=== PATIENT | female | born 1960 | race Caucasian/White ===

== ENCOUNTER → 2017-10-28 09:22 | Outpatient (CLI) | payer BC, SELFPAY ==
--- NOTE | 2017-10-28 09:32 | XR_ITS ---
XR chest 2V HISTORY: ITS.REASON: + PPD ORDERING PHYSICIAN: Flora Mac PATIENT AGE: 57 years COMPARISON: Floor 416 FINDINGS: The cardiomediastinal silhouette and pulmonary vascularity are within normal limits. The lungs are clear without infiltrates, suspicious nodules, or pleural effusions. No evidence of active granulomatous process Minimal thoracic curvature convex right. IMPRESSION: No change with no acute finding
== END ==
PROVIDERS: PCP Internal Medicine Adolescent Medicine; Visit Provider Nurse Practitioner Family
DX: R76.11 Nonspecific reaction to tuberculin skin test without active tuberculosis (principal)
CPT/HCPCS: 71046

== ENCOUNTER → 2021-05-13 08:07 | Outpatient (CLI) | payer BC, SELFPAY ==
[2021-05-13 08:47] LABS: Basophils # 0.1 K/mm3 (0-0.2); Eosinophils # 0.1 K/mm3 (0.0-0.4); Eosinophils % 2.3 % (0.1-12.0); Hematocrit 37.2 % (37.0-47.0); Hemoglobin 11.2 g/dL (12.2-16.2); Lymphocytes # 1.6 K/mm3 (0.7-4.5); Lymphocytes % 29.1 % (10-50); Mean Corpuscular HGB Conc 30.2 g/dL (31.8-35.4); Mean Corpuscular Hemoglobin 26.1 pg (27.0-31.2); Mean Corpuscular Volume 86.5 fl (81-99); Mean Platelet Volume 9.6 fl (7.4-10.4); Monocytes # 0.4 K/mm3 (0.1-1.0); Monocytes % 7.1 % (1.7-9.3); Neutrophils # 3.3 K/mm3 (1.8-7.8); Neutrophils % 60.4 % (37.0-80.0); Platelet Count 305 K/mm3 (142-424); White Blood Count 5.5 K/mm3 (4.8-10.8)
[2021-05-13 16:45] LABS: 25-OH Vitamin D, Total 33.9 ng/mL (30-100)
[2021-05-13 17:20] LABS: Alanine Aminotransferase 21 U/L (12-78); Albumin Level 3.6 g/dl (3.5-5.0); Albumin/Globulin Ratio 1.3 (1.1-1.8); Alkaline Phosphatase 80 U/L (38-126); Aspartate Amino Transferase 33 U/L (14-36); Bilirubin,Total 0.3 mg/dl (0.2-1.3); Blood Urea Nitrogen 23 mg/dl (7-17); Calcium 8.7 mg/dl (8.4-10.2); Carbon Dioxide 32 mmol/L (22.0-30.0); Chloride 101 mmol/L (98-107); Estimated Glomerular Filt Rate 57 ml/min (>60); GFR (African American) 69 ML/MIN (>60); Globulin 2.8 g/dL (1.3-3.2); Glucose 91 mg/dl (74-100); Sodium 141 mmol/L (136-145); Total Protein,Serum 6.4 g/dl (6.3-8.2)
[2021-05-13 18:08] LABS: Vitamin B12 435 pg/mL (239-931)
== END ==
PROVIDERS: Visit Provider Nurse Practitioner Family
DX: E53.8 Deficiency of other specified B group vitamins (principal); E55.9 Vitamin D deficiency, unspecified
CPT/HCPCS: 36415; 80053; 82306; 82607; 85025

== ENCOUNTER → 2021-06-17 09:28 | Outpatient (CLI) | payer BC, SELFPAY | PROVIDERS: PCP Internal Medicine Adolescent Medicine; Visit Provider Nurse Practitioner Family | DX: R06.02 Shortness of breath (principal) | CPT/HCPCS: 93306 ==

== ENCOUNTER → 2021-08-25 13:21 | Outpatient (CLI) | payer BC, SELFPAY | PROVIDERS: Visit Provider Nurse Practitioner | DX: Z20.822 Contact with and (suspected) exposure to COVID-19 (principal) | CPT/HCPCS: C9803; U0003; U0005 ==

== ENCOUNTER → 2021-09-06 10:23 | Outpatient (CLI) | payer BC, SELFPAY ==
--- NOTE | 2021-09-06 10:45 | XR_ITS ---
PROCEDURE INFORMATION: Exam: XR Right Knee Exam date and time: 09/06/2021 10:45 AM Age: 61 years old Clinical indication: Right; Patient HX: Pain RT knee x's 2 weeks - no injury TECHNIQUE: Imaging protocol: XR Right knee. Views: 3 views. COMPARISON: No relevant prior studies available. FINDINGS: Bones/joints: Moderate degenerative changes within the medial compartment and to a lesser degree the lateral compartment. Joint space narrowing with osteophytosis. Moderate to severe patellofemoral degenerative changes. Small joint effusion. Soft tissues: Normal. IMPRESSION: 1. Moderate degenerative changes within the medial compartment and to a lesser degree the lateral compartment. Joint space narrowing with osteophytosis. 2. Moderate to severe patellofemoral degenerative changes. 3. Small joint effusion.
[2021-09-06 11:22] LABS: Alanine Aminotransferase 24 U/L (12-78); Albumin Level 3.8 g/dl (3.5-5.0); Albumin/Globulin Ratio 1.5 (1.1-1.8); Alkaline Phosphatase 75 U/L (38-126); Anion Gap 6.8 mEq/L (5-15); Aspartate Amino Transferase 36 U/L (14-36); Bilirubin,Total 0.4 mg/dl (0.2-1.3); Blood Urea Nitrogen 19 mg/dl (7-17); Calcium 8.9 mg/dl (8.4-10.2); Carbon Dioxide 37 mmol/L (22.0-30.0); Chloride 99 mmol/L (98-107); Chol/HDL Ratio 3.1 (1-3.5); Cholesterol 190 mg/dl (140-200); Estimated Glomerular Filt Rate 57 ml/min (>60); GFR (African American) 69 ML/MIN (>60); Globulin 2.6 g/dL (1.3-3.2); Glucose 87 mg/dl (74-100); HDL Cholesterol 62 mg/dl (40-60); Potassium 3.8 mmoL/L (3.5-5.1); Sodium 139 mmol/L (136-145); Total Protein,Serum 6.4 g/dl (6.3-8.2); Triglycerides 62 mg/dl (30-150); Uric Acid 7.2 mg/dl (2.5-6.2); VLDL Cholesterol 12 mg/dL (0-40)
[2021-09-06 11:33] LABS: Direct LDL Cholesterol 106.28 mg/dL (100-129)
[2021-09-06 11:49] LABS: Basophils # 0.1 K/mm3 (0-0.2); Basophils % 2.3 % (0.1-2.0); Eosinophils # 0.2 K/mm3 (0.0-0.4); Eosinophils % 3.4 % (0.1-12.0); Hematocrit 42.8 % (37.0-47.0); Hemoglobin 13.3 g/dL (12.2-16.2); Lymphocytes # 1.4 K/mm3 (0.7-4.5); Lymphocytes % 23.4 % (10-50); Mean Corpuscular Hemoglobin 29.1 pg (27.0-31.2); Mean Corpuscular Volume 93.8 fl (81-99); Mean Platelet Volume 8.5 fl (7.4-10.4); Monocytes # 0.4 K/mm3 (0.1-1.0); Monocytes % 6.9 % (1.7-9.3); Neutrophils # 3.7 K/mm3 (1.8-7.8); Platelet Count 269 K/mm3 (142-424); Red Blood Count 4.56 M/mm3 (4.20-5.40); Red Cell Distribution Width 16.7 % (11.5-17.5); White Blood Count 5.8 K/mm3 (4.8-10.8)
[2021-09-06 12:03] LABS: Erythrocyte Sedimentation Rate 39 mm/hr (0-30)
[2021-09-06 12:11] LABS: Vitamin B12 348 pg/mL (239-931)
== END ==
PROVIDERS: PCP Nurse Practitioner Family; Visit Provider Nurse Practitioner Family
DX: Z00.00 Encounter for general adult medical examination without abnormal findings (principal); E53.8 Deficiency of other specified B group vitamins; E55.9 Vitamin D deficiency, unspecified; M25.561 Pain in right knee
CPT/HCPCS: 36415; 73562; 80053; 80061; 82306; 82607; 84550; 85025; 85651

== ENCOUNTER 2021-09-20 16:11 | Emergency (ER) | payer BC, SELFPAY ==
[2021-09-20 16:12] VITALS: BP 128/89; PULSE 55; RESP 14; TEMP 36.8; O2SAT 99; BMI 34.3
[2021-09-20 16:36] VITALS: BP 128/89; PULSE 55; RESP 14; TEMP 36.8; O2SAT 99; BMI 34.1
--- NOTE | 2021-09-20 17:27 | HMH.EDUTC ---
[facility] [place] Clinical Impression: Need for Tdap vaccination Laceration of left leg Qualifiers: Encounter type: initial encounter Qualified Code(s): S81.812A - Laceration without foreign body, left lower leg, initial encounter Skin tear of left lower leg without complication Qualifiers: Encounter type: initial encounter Qualified Code(s): S81.812A - Laceration without foreign body, left lower leg, initial encounter Disposition: Home, Self-Care Condition on Discharge: Good Instructions: How to Care for a Laceration After Repair Additional Instructions: Keep the wound clean and dry. Keep a dressing on it if you are going to be getting it dirty. Watch the for signs of infection, such as redness, swelling, drainage, fever. etc. take tylenol for pain. Follow up with your regular doctor on Wednesday for a wound recheck. The skin is so fragile that I don't the sutures are going to hold it closed. Return in 7 to 10 days to have the sutures removed. GO TO THE ER FOR ANY WORSENING SYMPTOMS OR CONCERNS. Prescriptions: Mupirocin [Bactroban 2% Ointment 22gm tube] 1 applicatio TP TID 7 Days #1 gm Transmission Status: Received by [id number] cephALEXin [cephALEXin 500mg capsule] 500 mg PO Q6H 10 Days #40 cap Transmission Status: Received by [id number] Referrals: Flora Mac APRN [Primary Care Provider] - Time of Disposition: 19:19 Medical Decision Making - Medical Records Medical records reviewed: Yes: I reviewed the patient's medical records. - Imtiaz Inquiry Pt receiving controlled substance: No Vital Signs: 09/20/21 16:12 09/20/21 16:36 09/20/21 19:34 Temperature 98.3 F 98.3 F 98.3 F Temperature Source Oral Oral Pulse Rate 55 L Pulse Rate [Left Radial] 55 L 55 L Respiratory Rate 14 14 14 Blood Pressure 128/69 Blood Pressure [Left Arm] 128/89 128/89 Blood Pressure Mean [Left Arm] 102 102 Blood Pressure Source [Left Arm] Automatic Cuff Blood Pressure Position [Left Arm] Sitting 02 Sat by Pulse Oximetry 99 99 Oxygen Delivery Method Room Air Orders (Tests/Meds): ED MEDICATIONS Discontinued Medications Generic Name Dose Route Start Last Admin Trade Name Freq PRN Reason Stop Dose Admin Lidocaine HCl 2 ml 09/20/21 19:32 09/20/21 19:33 Lidocaine 1% Pf 2ml Ampule SQ 09/20/21 19:33 2 ml ONCE ONE Administration Tetanus/Reduced Diphtheria/Acell Pertussis 0.5 ml 09/20/21 17:38 09/20/21 17:43 Tet/Diphth/Pert-Adult 0.5ml Syringe IM 09/20/21 17:39 0.5 ml .ONCE ONE Administration Medical Decision Narrative: I was concerned about how well her lower leg will heal. She has edema or her bilateral lower extremities. I did put 4 loose sutures in the deepest area of the wound. The rest of the skin was spread back out over the wound and held in place with steri-strips. She was instructed to follow up closely with her pcp to keep a close eye on the wound. [facility] [place] HPI - General Stated complaint: lt leg lac Time Seen by Provider: 09/20/21 17:27 Mode of Arrival: Ambulatory Source of Information: Patient Limitations: No Limitations HEENT Symptoms (Recalled from RN notes): No Resp Symptoms (Recalled from RN notes): No Skin Symptoms (Recalled from RN notes): Yes MS Symptoms (Recalled from RN notes): No Functional Status (Recalled from RN notes): wnl - History of Present Illness Provider Complaint: She bumped her left lower leg on a box in her floor and it caused a v shaped skin tear. She states that her skin is very fragile on her lower legs. She denies history diabetes. - Related Data Home Medications Medication Instructions Recorded Confirmed escitalopram oxalate 20 mg tablet 20 mg PO DAILY #90 tab 03/03/19 03/03/19 metoprolol tartrate 25 mg tablet 25 mg PO DAILY tab 03/03/19 03/03/19 triamterene 75 1 tab PO DAILY 03/03/19 03/03/19 mg-hydrochlorothiazide 50 mg tablet Previous Rx's Medication Instructions Ralph
[2021-09-20 19:34] VITALS: BP 128/69; PULSE 55; RESP 14; TEMP 36.8
== END 2021-09-20 19:35 | disposition home or self-care (01) ==
LOC: ER 16:23 → UTC 16:24
PROVIDERS: Emergency Provider Nurse Practitioner Family; PCP Nurse Practitioner Family
DX: S81.812A Laceration without foreign body, left lower leg, initial encounter (principal); W45.8XXA Other foreign body or object entering through skin, initial encounter; Y92.019 Unspecified place in single-family (private) house as the place of occurrence of the external cause; I10 Essential (primary) hypertension; Z23 Encounter for immunization
CPT/HCPCS: 12004; 90715; 99202; G0463

== ENCOUNTER → 2021-10-03 09:44 | Outpatient (CLI) | payer BC, SELFPAY ==
--- NOTE | 2021-10-03 09:55 | XR_ITS ---
FINAL REPORT CLINICAL HISTORY: knee pain,,NO TRAUMA COMPARISON: September 06, 2021 FINDINGS: 4 weight-bearing views of the right knee were obtained. There is no acute fracture or dislocation. There are mild and moderate degenerative changes. There is medial and patellofemoral joint space narrowing. Narrowing of the medial compartment is worse with weight-bearing. There is a partially improved small joint effusion. IMPRESSION: Mild and moderate degenerative changes. Partially improved small joint effusion. Reviewed, Interpreted and Dictated by Alex Shelley III, MD Transcribed by Pawan Walter Authenticated by Alex Shelley III, MD on 10/03/2021 11:05:[address] [facility]
== END ==
PROVIDERS: PCP Nurse Practitioner Family; Visit Provider Orthopaedic Surgery
DX: M25.561 Pain in right knee (principal)
CPT/HCPCS: 73564

== ENCOUNTER 2021-10-23 16:00 | Outpatient (RCR) | payer BC, SELFPAY ==
--- NOTE | 2021-06-17 09:32 | HMH.PTOPWND ---
Rehab Outpt Wound Evaluation Rehab OP Wound Evaluation Start: 06/17/21 09:06 Freq: Status: Active Protocol: Document 06/17/21 09:27 MANOJ (Rec: 06/17/21 09:32 PHOMYRA [id number]) Electronically Signed By Crispin Collier, PT 06/17/21 09:27 Subjective/History History History Pt is 61 yowf who presents with c/o sudden increase in B LE edema x ~ 3 wks. She reports hx of lipidema with symptoms worse on the R LE at baseline. However, this episode of edema was unlike any she had previously experienced and she has no known cause. She reports increased pain when her edema is worse, even into B knees. PMH: HTN. Subjective Subjective Currently no c/o pain or tenderness. At worst pain is 8 /10. Lymphedema Eval Classification of Lymphedema Secondary Lymphedema Yes: also lipidema Stage of Lymphedema Lymphedema stages Stage II (Pitting edema, increased fibrosis w/ decreased pitting) Skin Changes Dry Skin Yes Skin Folds Yes Redness Yes Discoloration of Skin Yes Pain Scale Pain Scale (0-10) 8 Affected Extremities Areas Affected by Lymphedema/Edema Right Lower Extremity,Left Lower Extremity Manual Lymphatic Drainage Treatment Area MLD Treatment Area Right Lower Extremity,Left Lower Extremity Wound Problems/Impairments Impairments Problems/Impairmments Palpation Tenderness,Impaired Walking,Impaired Standing, Impaired Sitting,Increased Edema,Lymphedema Present, Subjective C/O Pain,Impaired Self Care/Self Management Prognosis Rehab Potential Good Clinical Impression Consistent with Diagnosis Yes Short Term Goals Number of Weeks 4 Decrease Edema Yes Decrease Subjective C/O Pain Yes: 6/10 at worst Patient to Understand Lymphedema Yes Treatment and Exercises Decrease Girth Measurments by (cm) Yes: by 5 cm Care Home Goals Number of Weeks 8 Decrease Lymphedema Yes Decrease Subjective C/O Pain Yes: 3/10 at worst Patient to be Ind w/ HEP Yes Patient to be
--- NOTE | 2021-07-25 08:52 | HMH.RHREAS ---
Rehab Reassessment Rehab OP Re-assessment Start: 07/25/21 08:48 Freq: Status: Active Protocol: Document 07/25/21 08:48 MANOJ (Rec: 07/25/21 08:52 MANOJ [id number]) Electronically Signed By Crispin Collier, PT 07/25/21 08:48 Rehab Re-assessment Subjective Subjective Pt reports no pain at this time in B LE, No palpation tenderness noted this date also. Objective Objective Notes Circumferential Measurements: R LE total = 335.9 cm which is -11.8 cm since IE. L LE total = 336.1 cm which is -11. 5 cm since IE. Assessment Progress Assessment Progressing as Expected Assessment Notes Significant reduction in pain and tenderness. Much less edema overall already. Tolerating compression well. Continue to reduce edema as able. Patient goals met ST,2,3,4 Goals Not Met LT,2,3,4,5,6 Revised Goals none Plan Plan Continue per initial POC. Frequency of Therapy 2 x/wk Duration of therapy 8 wks Time and Billing Re-Eval Time 15 Re-Eval Billing Units 1 PHYSICIAN CERTIFICATION: I certify the specified therapy services for Samaria Granados are required, authorized, and reviewed every 30 days.
--- NOTE | 2021-08-21 10:16 | HMH.RHREAS ---
Rehab Reassessment Rehab OP Re-assessment Start: 07/25/21 08:48 Freq: Status: Active Protocol: Document 08/21/21 10:13 MANOJ (Rec: 08/21/21 10:16 MANOJ [id number]) Electronically Signed By Crispin Collier, PT 08/21/21 10:13 Rehab Re-assessment Subjective Subjective Pt reports, I can just see such a big difference in my legs and I feel so much better than when we started. Objective Objective Notes Circumferential Measurements: R LE is -17.1 cm since IE. L LE is -18.3 cm since IE. Pain at worst /10 Assessment Progress Assessment Progressing as Expected Assessment Notes Considerable decrease in edema overall with less stiffness in the tissues during palpation. Pain has significantly decerased and mobility is improved overall. Patient goals met ST,2,3,4 LT,6 Goals Not Met LT,3,4,5 Revised Goals none Plan Plan Continue per initial POC. Frequency of Therapy 2 x/wk Duration of therapy 8 wks Time and Billing Re-Eval Time 15 Re-Eval Billing Units 1 PHYSICIAN CERTIFICATION: I certify the specified therapy services for Samaria Granados are required, authorized, and reviewed every 30 days.
== END 2021-10-23 16:05 | disposition home or self-care (01) ==
LOC: PT 16:00
PROVIDERS: PCP Internal Medicine Adolescent Medicine; Visit Provider Nurse Practitioner Family
DX: I89.0 Lymphedema, not elsewhere classified (principal)
CPT/HCPCS: 97140; 97162; 97164; 97760

== ENCOUNTER → 2022-03-05 13:02 | Outpatient (CLI) | payer BC, SELFPAY ==
[2022-03-05 14:02] LABS: Basophils # 0.1 K/mm3 (0-0.2); Eosinophils # 0.1 K/mm3 (0.0-0.4); Eosinophils % 1.8 % (0.1-12.0); Hematocrit 39.2 % (37.0-47.0); Hemoglobin 12.4 g/dL (12.2-16.2); Lymphocytes # 1.5 K/mm3 (0.7-4.5); Lymphocytes % 26.5 % (10-50); Mean Corpuscular HGB Conc 31.6 g/dL (31.8-35.4); Mean Corpuscular Hemoglobin 30.5 pg (27.0-31.2); Mean Corpuscular Volume 96.4 fl (81-99); Monocytes # 0.4 K/mm3 (0.1-1.0); Monocytes % 7.4 % (1.7-9.3); Neutrophils # 3.7 K/mm3 (1.8-7.8); Neutrophils % 63.2 % (37.0-80.0); Platelet Count 218 K/mm3 (142-424); Red Blood Count 4.07 M/mm3 (4.20-5.40); Red Cell Distribution Width 14.8 % (11.5-17.5); White Blood Count 5.8 K/mm3 (4.8-10.8)
[2022-03-05 14:16] LABS: Alanine Aminotransferase 30 U/L (12-78); Albumin Level 3.4 g/dl (3.5-5.0); Albumin/Globulin Ratio 1.3 (1.1-1.8); Alkaline Phosphatase 87 U/L (38-126); Anion Gap 9.3 mEq/L (5-15); Aspartate Amino Transferase 34 U/L (14-36); Bilirubin,Total 0.3 mg/dl (0.2-1.3); Blood Urea Nitrogen 20 mg/dl (7-17); Calcium 8.8 mg/dl (8.4-10.2); Carbon Dioxide 29 mmol/L (22.0-30.0); Chloride 106 mmol/L (98-107); Estimated Glomerular Filt Rate 73 ml/min (>60); GFR (African American) 89 ML/MIN (>60); Globulin 2.6 g/dL (1.3-3.2); Glucose 90 mg/dl (74-100); Magnesium 1.6 mg/dl (1.6-2.3); Potassium 4.3 mmoL/L (3.5-5.1); Sodium 140 mmol/L (136-145); Uric Acid 3.8 mg/dl (2.5-6.2)
[2022-03-05 14:32] LABS: 25-OH Vitamin D, Total 30.3 ng/mL (30-100)
[2022-03-05 14:44] LABS: Thyroid Stimulating Hormone 1.07 uIU/mL (0.465-4.68)
[2022-03-05 15:03] LABS: Vitamin B12 637 pg/mL (239-931)
== END ==
PROVIDERS: PCP Nurse Practitioner Family; Visit Provider Nurse Practitioner Family
DX: I10 Essential (primary) hypertension (principal); R60.0 Localized edema; E79.0 Hyperuricemia without signs of inflammatory arthritis and tophaceous disease; E53.8 Deficiency of other specified B group vitamins; E55.9 Vitamin D deficiency, unspecified
CPT/HCPCS: 36415; 80053; 82306; 82607; 83735; 84443; 84550; 85025

== ENCOUNTER → 2022-06-23 10:53 | Outpatient (POV) | payer BC, SELFPAY | PROVIDERS: Visit Provider Dermatology | DX: Z00.00 Encounter for general adult medical examination without abnormal findings (principal) ==

== ENCOUNTER 2022-06-24 16:00 | Outpatient (RCR) | payer BC, OTHER, SELFPAY ==
--- NOTE | 2022-03-24 08:32 | HMH.PTOPWND ---
Rehab Outpt Wound Evaluation Rehab OP Wound Evaluation Start: 03/24/22 08:04 Freq: Status: Active Protocol: Document 03/24/22 08:24 MANOJ (Rec: 03/24/22 08:31 PHORNE [id number]) Electronically Signed By Crispin Collier, PT 03/24/22 08:24 Subjective/History History History Pt is 62 yowf who presents with hx of Lipidema and newer onset of increased swelling x ~ 1-2 mos. She reports insidious onset of symptoms and increased pain and tenderness with increased edema. She reports symptosm began after returning from vacation, but no known mechanism of injury. Currently edema is decreased, but she has been taking diuretic as prescribed by her [employer] HOST. PMH of bariatric surgery, HTN, and CCY. Subjective Subjective Currently pain 0/10, at worst pain was 10/10 when edema was at its peak. Tenderness to palpation 2/4 in B lower legs and medial thigh. Palpable nodules throughout B LE indicative of Lipidema. Lymphedema Eval Classification of Lymphedema Secondary Lymphedema Yes Other Lymphedema Cause Yes: Lipidema Stemmer's sign Stemmer's Sign no Stage of Lymphedema Lymphedema stages Stage I (Pitting edema, reduces w/ elevation, no fibrosis) Skin Changes Dry Skin Yes Skin Folds Yes Redness Yes Discoloration of Skin Yes Other Changes Yes Pain Scale Pain Scale (0-10) 10 Affected Extremities Areas Affected by Lymphedema/Edema Right Lower Extremity,Left Lower Extremity Manual Lymphatic Drainage Treatment Area MLD Treatment Area Right Lower Extremity,Left Lower Extremity Wound Problems/Impairments Impairments Problems/Impairmments Palpation Tenderness,Impaired Range of Motion,Impaired Strength,Impaired Endurance, Impaired Walking,Impaired Recreational Activities, Increased Edema,Lymphedema Present,
--- NOTE | 2022-04-29 09:58 | HMH.RHREAS ---
Rehab Reassessment Rehab OP Re-assessment Start: 04/29/22 09:53 Freq: Status: Active Protocol: Document 04/29/22 09:54 HARRYMYRA (Rec: 04/29/22 09:57 PHOMYRA [id number]) E-signed By Crispin Collier, PT Rehab Re-assessment Subjective Subjective Pt reports she feels her legs are less heavy, she is able to walk better, and soreness has decreased somewhat. Objective Objective Notes Circumferential measurements: L LE 415.5 cm total. R LE 425. 6 cm total. Pain 12/30 PPT: 08/26 B LE. Assessment Progress Assessment Progressing as Expected Assessment Notes Pt has shown significant reduction in pain and tenderness throughout B LE. She has decreased overall edema some, but continues to have more swelling than baseline. She is ambulating better, but edema increases with prolonged dependent positioning. Patient goals met ST,2,3,4 Goals Not Met LT,2,3,4,5,6,7 Revised Goals none Plan Plan Continue per initial POC. Frequency of Therapy 2 x/wk Duration of therapy 4 wks Time and Billing Re-Eval Time 14 Re-Eval Billing Units 1 PHYSICIAN CERTIFICATION: I certify the specified therapy services for Samaria Granados are required, authorized, and reviewed every 30 days.
--- NOTE | 2022-05-28 09:45 | HMH.RHREAS ---
Rehab Reassessment Rehab OP Re-assessment Start: 04/29/22 09:53 Freq: Status: Active Protocol: Document 05/28/22 09:42 HARRYMYRA (Rec: 05/28/22 09:45 PHOMYRA [id number]) E-signed By Crispin Collier, PT Rehab Re-assessment Subjective Subjective Pt reports 0/10 pain this date . Feeling much better with all mobility. Objective Objective Notes B LE with significant reduction in fibrotic edema throughout, especially R lower leg and medial thigh. Mildly fibrotic doughy edema noted to B lower legs, R worse than L. Palpation tenderness: 1/4 to R lower leg only. Assessment Progress Assessment Progressing as Expected Assessment Notes Pt has shown significnat improvement in all edema and mobility at this time. Pain continues to steadily decrease and expect palpation tendernes to be completely dissipated in the next 2-3 wks . Continues to need MLD for edema control for several wks to maintain improvements thus far. Patient goals met ST,2,3,4 Goals Not Met LT,2,3,4,5,6,7 Revised Goals none Plan Plan Continue per initial POC. Frequency of Therapy 2 x/wk Duration of therapy 4 wks Time and Billing Re-Eval Time 15 Re-Eval Billing Units 1 PHYSICIAN CERTIFICATION: I certify the specified therapy services for Samaria Granados are required, authorized, and reviewed every 30 days.
--- NOTE | 2022-07-01 16:15 | HMH.RHREAS ---
Rehab Reassessment Rehab OP Re-assessment Start: 04/29/22 09:53 Freq: Status: Active Protocol: Document 07/01/22 16:11 PHOMYRA (Rec: 07/01/22 16:15 PHORNE [id number]) E-signed By Crispin Collier, PT Rehab Re-assessment Subjective Subjective Pt again notes 0/10 pain in B LE, continues to feel much better overall. Objective Objective Notes B LE much more soft to palpation and no pitting edema noted at all. No fibrotic edema noted to B lower legs at this time. Palpation tenderness: 1/4 to R lower leg only. Assessment Progress Assessment Progressing as Expected Assessment Notes Pt has continued to improve with pain control and edema in B LE, but seems to be reaching a plateau in treatment at this time. Only minimal changes noted since last reassessment. Pt has lymphedema pump at home and continues to use as appropriate. Patient goals met ST,2,3,4 LT,2,3,4,5,6,7 Revised Goals none Plan Plan Will D/C to Home Program after this visit. Pt instructed to resume treatment quickly should symptoms worsen. Time and Billing Re-Eval Time 14 Re-Eval Billing Units 1 PHYSICIAN CERTIFICATION: I certify the specified therapy services for Samaria Granados are required, authorized, and reviewed every 30 days.
== END 2022-06-24 16:05 | disposition home or self-care (01) ==
LOC: PT 16:00
PROVIDERS: PCP Nurse Practitioner Family; Visit Provider Nurse Practitioner Family
DX: I89.0 Lymphedema, not elsewhere classified (principal); R60.0 Localized edema
CPT/HCPCS: 97140; 97162; 97164

== ENCOUNTER 2023-10-28 11:46 | Outpatient (CLI) | payer BC, OTHER, SELFPAY ==
[2023-10-28 13:03] LABS: Basophils % 0.8 % (0.1-2.0); Eosinophils # 0.1 K/mm3 (0.0-0.4); Eosinophils % 2.4 % (0.1-12.0); Hemoglobin 12.9 g/dL (12.2-16.2); Lymphocytes # 1.7 K/mm3 (0.7-4.5); Mean Corpuscular HGB Conc 31.5 g/dL (31.8-35.4); Mean Corpuscular Volume 95.3 fl (81-99); Mean Platelet Volume 8.9 fl (7.4-10.4); Monocytes # 0.4 K/mm3 (0.1-1.0); Monocytes % 7.9 % (1.7-9.3); Neutrophils # 2.8 K/mm3 (1.8-7.8); Neutrophils % 54.8 % (37.0-80.0); Platelet Count 218 K/mm3 (142-424); Red Blood Count 4.31 M/mm3 (4.20-5.40); Red Cell Distribution Width 15.4 % (11.5-17.5)
[2023-10-28 13:36] LABS: 25-OH Vitamin D, Total 38.2 ng/mL (30-100); Alanine Aminotransferase 24 U/L (12-78); Albumin Level 3.9 g/dl (3.5-5.0); Albumin/Globulin Ratio 1.6 (1.1-1.8); Alkaline Phosphatase 90 U/L (38-126); Anion Gap 9.1 mEq/L (5-15); Aspartate Amino Transferase 37 U/L (14-36); Bilirubin,Total 0.5 mg/dl (0.2-1.3); Blood Urea Nitrogen 25 mg/dl (7-17); Carbon Dioxide 29 mmol/L (22.0-30.0); Chloride 105 mmol/L (98-107); Estimated Glomerular Filt Rate 56 ml/min (>60); GFR (African American) 68 ML/MIN (>60); Globulin 2.5 g/dL (1.3-3.2); Glucose 85 mg/dl (74-100); Potassium 4.1 mmoL/L (3.5-5.1); Sodium 139 mmol/L (136-145); Total Protein,Serum 6.4 g/dl (6.3-8.2); Uric Acid 4.4 mg/dl (2.5-6.2)
[2023-10-28 13:51] LABS: Free Thyroxine Index 3.6 ug/dL (5.93-13.13); T4 (Thyroxine) 10.3 ug/dl (5.53-11.0); Triiodothryronine (T3) Uptake 35 % (23.5-40.5)
[2023-10-28 14:27] LABS: Vitamin B12 603 pg/mL (239-931)
== END 2023-10-28 23:59 ==
LOC: LAB 11:46
PROVIDERS: PCP Nurse Practitioner Family; Visit Provider Nurse Practitioner Family
DX: I10 Essential (primary) hypertension (principal); E79.0 Hyperuricemia without signs of inflammatory arthritis and tophaceous disease; H53.9 Unspecified visual disturbance; E53.8 Deficiency of other specified B group vitamins; E55.9 Vitamin D deficiency, unspecified; Z79.899 Other long term (current) drug therapy
CPT/HCPCS: 36415; 80053; 82306; 82607; 84436; 84443; 84479; 84550; 85025

== ENCOUNTER 2024-02-07 09:19 | Outpatient (CLI) | payer BC, SELFPAY ==
--- NOTE | 2024-02-07 09:19 | US_ITS ---
PROCEDURE: US TRANSVAGINAL CLINICAL INDICATION: post menopausal bleeding COMPARISON: No exams were available for comparison FINDINGS: Transvaginal sonographic images of the pelvis were obtained. UTERUS: 6.2cm x 5.5cmx 3.1cm midline anteverted with a combined endometrial thickness of 10.3mm. There is a small amount of fluid within the cervix. LEFT OVARY: 1.2cmx1.0cmx1.2cm with a volume of 0.7ml. RIGHT OVARY: 1.55 cmx 0.7 cmx0.9 cm with a volume of 0.5ml. Both ovaries are seen and appear normal. Doppler flow to both ovaries are seen. There is no fluid in the cul-de-sac. IMPRESSION: 1. Midline, anteverted uterus small in size and normal in shape. The endometrium appears thickened on some views. 2. There is fluid within the cervix. 3. Difficult examination due to uterine position. 4. Both ovaries are seen and appear atrophic. 5. No fluid in the cul-de-sac. Dictated by: Angel Moura MD 02/07/2024 17:44 Angel Moura MD in OV 02/07/2024 17:44
== END 2024-02-07 23:59 | disposition home or self-care (01) ==
LOC: RAD 09:19
PROVIDERS: PCP Nurse Practitioner Family; Visit Provider Obstetrics & Gynecology
DX: N95.0 Postmenopausal bleeding (principal)
CPT/HCPCS: 76830

== ENCOUNTER 2024-02-28 14:40 | Outpatient (CLI) | payer BC, SELFPAY ==
[2024-02-28 15:01] LABS: Basophils # 0.1 K/mm3 (0-0.2); Eosinophils # 0.2 K/mm3 (0.0-0.4); Eosinophils % 3.1 % (0.1-12.0); Hematocrit 40.9 % (37.0-47.0); Hemoglobin 13.1 g/dL (12.2-16.2); Lymphocytes # 1.4 K/mm3 (0.7-4.5); Lymphocytes % 29.1 % (10-50); Mean Corpuscular HGB Conc 31.9 g/dL (31.8-35.4); Mean Corpuscular Hemoglobin 31.3 pg (27.0-31.2); Mean Corpuscular Volume 98.1 fl (81-99); Mean Platelet Volume 8.3 fl (7.4-10.4); Monocytes # 0.4 K/mm3 (0.1-1.0); Monocytes % 7.3 % (1.7-9.3); Neutrophils % 59.6 % (37.0-80.0); Platelet Count 221 K/mm3 (142-424); Red Blood Count 4.17 M/mm3 (4.20-5.40); Red Cell Distribution Width 14.5 % (11.5-17.5)
[2024-02-28 15:34] LABS: Alanine Aminotransferase 29 U/L (12-78); Albumin Level 3.5 g/dl (3.5-5.0); Albumin/Globulin Ratio 1.3 (1.1-1.8); Alkaline Phosphatase 73 U/L (38-126); Anion Gap 3.2 mEq/L (5-15); Aspartate Amino Transferase 34 U/L (14-36); Bilirubin,Total 0.5 mg/dl (0.2-1.3); Blood Urea Nitrogen 27 mg/dl (7-17); Calcium 8.8 mg/dl (8.4-10.2); Carbon Dioxide 31 mmol/L (22.0-30.0); Chloride 107 mmol/L (98-107); Estimated Glomerular Filt Rate 46 ml/min (>60); GFR (African American) 55 ML/MIN (>60); Globulin 2.6 g/dL (1.3-3.2); Glucose 99 mg/dl (74-100); Potassium 4.2 mmoL/L (3.5-5.1); Sodium 137 mmol/L (136-145); Total Protein,Serum 6.1 g/dl (6.3-8.2)
[2024-02-28 15:50] LABS: HCG,Quantitative 3 mIU/ml (0-5.42)
== END 2024-02-28 23:59 | disposition home or self-care (01) ==
LOC: LAB 14:42
PROVIDERS: PCP Nurse Practitioner Family; Visit Provider Obstetrics & Gynecology
DX: Z01.818 Encounter for other preprocedural examination (principal); R93.89 Abnormal findings on diagnostic imaging of other specified body structures; N89.8 Other specified noninflammatory disorders of vagina
CPT/HCPCS: 36415; 80053; 84702; 85025

== ENCOUNTER 2024-03-03 06:05 | Day surgery (SDC) | payer BC, SELFPAY ==
[2024-03-02 09:47] VITALS: BMI 42.2
[2024-03-03] VITALS (10 sets, daily range): BP systolic 136–164; BP diastolic 69–100; PULSE 62–73; RESP 14–18; TEMP 36.1–36.4; O2SAT 98–100
[2024-03-03] MEDS: LACTATED RINGERS 1000ML 1,000 ML 25 ML IV (06:27)
[2024-03-03] MEDS: ACETAMINOPHEN 500MG TAB 1000 MG PO (06:27)
--- NOTE | 2024-03-03 06:47 | ECG_ITS ---
APPROVED REPORT Exam: Resting ECG HR:52 bpm ECG Measurements Heart Rate 52 AXES QRSd 100 QRS 52 QT 472 T 14 QTc 451 Conclusion ATRIAL FIBRILLATION WITH SLOW VENTRICULAR RESPONSE LOW QRS VOLTAGE IN PRECORDIAL LEADS [QRS DEFLECTION < 1.0 mV IN CHEST LEADS] POSSIBLE ANTERIOR MYOCARDIAL INFARCTION , PROBABLY OLD [30 ms Q WAVE IN V3/V4, OR R < 0.2 mV IN V4] ABNORMAL RHYTHM ECG UNCONFIRMED REPORT Electronically signed by : Marquez Jaimes MD 03/04/2024 10:35:59
--- NOTE | 2024-03-03 06:47 | PC.NURSE ---
RT at bedside for EKG.
--- NOTE | 2024-03-03 07:03 | SUR.PREOP ---
EKG noted A Fib, however, Gifty Sol [employer] wanted to connect pt to ECG monitor to get a more accurate reading. Showing NSR, Gifty Sol [employer] satisfied to proceed. Strip printed.
--- NOTE | 2024-03-03 07:07 | P.PNANES_ITS ---
[facility] Disclaimer: The information contained in this section may have been updated after the patient was seen, as this information can be updated by other users. Medical History Thickened endometrium Vaginal discharge HSV (herpes simplex virus) infection Osteoarthritis of right knee Surgical History (Updated 03/03/24 @ 06:24 by Melissa Allen RN) History of gastric bypass S/P skin biopsy Family History Family/Other Breast cancer Social History (Updated 03/03/24 @ 06:24 by Melissa Allen RN) Smoking Status: Never smoker alcohol intake: never substance use type: denies use current occupational status: employed Travel in the last 8 weeks: None [facility] Anesthesia Checklist Patient Identification Patient Identification: Arm Band and Family Structural Data Admitted From: Emergency Dept Planned Operative Procedure/s: Hysteroscopy. D & D. Myosure. Consent for Planned Operative Procedure(s) Verified: Yes Verified Documents: Surgical Consent and History and Physical NPO Status Verified Time NPO: 00:00 Additional verifications Patient : No Anesthesia Reactions: No Hx Blood Transfusions: No Blood Transfusion Reaction: No Cephalosporin Allergy: No Previous Colonoscopy: Yes Airway Assessment Mallampati Score:: Class I C-Spine Mobility Assessed: Yes TMJ Mobility Assessed: Yes Dentition: Good Dentition Neurological Assessment Level of Consciousness: Awake, Alert, Appropriate and Follows Commands Hx Seizures: No Numbness or tingling in extremities: No Anesthesia Plan Anesthesia Risk discussed: Yes ASA Class: II Anesthesia Type: General Preoperative Comments Pre-Operative Comments: Hypertension, Rx Metoprolol and Lisinopril.
[2024-03-03] MEDS: SODIUM CHLORIDE IRRIG SOLUTION 3,000 ML 25 ML IR (07:49)
--- NOTE | 2024-03-03 08:23 | EXP.ANES.I ---
[facility] Anesthesia Record Part I Anesthesia Record I Intake, IV Amount: 900 Hydration: Adequate Estimated blood loss (mL): 0 Urine output (mL): 0 Blood Products used (#): none Blood Pressure: 140/100 SaO2: 100 Pulse Rate: 64 Airway Patency: Patent Respiratory Rate: 14 Temperature: 97.2 F Patient is:: Drowsy and Stable
--- NOTE | 2024-03-03 08:46 | P.OP_ITS ---
Date of procedure: 03/03/24 Pre-op Diagnosis:: 1. Vaginal discharge 2. Thickened endometrium Post-op Diagnosis:: 1. Vaginal discharge 2. Thickened endometrium 3. Cervical stenosis Procedure performed:: Attempted dilation, hysteroscopy and curettage, failed secondary to cervical stenosis at internal os Surgeon:: Sharon Franco DO Fire Extinguisher Repairer(s):: N/a LABORATORY IMMUNOLOGIST:: Dann Currie Anesthesia: GETA Estimated blood loss (mL): 0 Clinical Note:: Mrs Samaria Granados is a 63 yo P2010 who presents to [facility] for scheduled procedure. She reports vaginal discharge that is song in color, not malodorus. States it has been going on for > 1 month. With this discharge she does have to wear a panty liner. She admits to some pelvic cramping. Pelvic ultrasound 02/07/24 demonstrated midline, anteverted uterus small in size and normal in shape. The endometrium appears thickened on some views, 10.3 mm. 2. There is fluid within the cervix. 3. Difficult examination due to uterine position. 4. Both ovaries are seen and appear atrophic. 5. No fluid in the cul-de-sac. Operative findings:: 1. On bimanual exam, uterus small, anteverted. No adnexal masses palpated 2. Cervical stenosis at internal os Operative note:: Risks, benefits and alternatives were discussed with the patient. Risks include but are not limited to bleeding, infection, uterine perforation and VTE. Patient voiced understanding and agreed to proceed. She was wheeled back to the operating room and placed under MAC without difficulty. She was placed in dorsal lithotomy position and prepped and draped in the normal sterile fashion. A bimanual exam was performed. A weighted Auvard was placed in the vaginal vault. Single tooth tenaculum was placed on anterior lip of the cervix. Cervix was noted to be stenotic. Pediatric dilators were used to attempt to dilate cervical os without success. Hysteroscope was inserted through the external os and into cervical canal. Internal os was visualized. Very stenotic and small opening of internal os. Attempted dilation of cervix a second time without sucess. Decision was made to stop procedure to mitigate risk of continued attempt at dilation followed by uterine perforation. Instruments were removed from the vagina. Tenaculum site was hemostatic. Patient was awaken from anesthesia without difficulty. She was transported to recovery room in stable condition. Patient will be discharged home when awake and ambulating. She was given postop instructions. Will plan to reschedule surgery with Cytotec preoperatively. Condition: stable Disposition: same day Specimens:: N/a Complications:: None
--- NOTE | 2024-03-03 08:54 | SUR.PHASEI ---
815- patient arrived via stretcher to PACU post-procedure. VSS upon arrival. Patient awake and able to answer yes and no questions appropriately. Patient stated she was not in any pain at this time. No vaginal bleeding noted post-procedure. 825- Patient VS remaining stable. Patient stated described current pain as cramping at 5/10. Offered pain medication per MAR, patient stated she did not want to take anything since it was just cramps. 835- Pain reevaluated. Patient stated cramping pain was still 5/10. Patient offered pain medication again per MAR and denied once again since it was just cramps. 845- Pain reevaluated. Patient stated cramping pain was the same but this time as for Tylenol. patient was given Tylenol in preop around 0630. Offered morphine per MAR an patient stated she does not want to take something that strong fro cramps and would like to wait to get home and take Motrin. 850- patient taken to post-op via stretcher. Report given to Juan Vance RN. VSS upon arrival. as the BS. No vaginal bleeding noted upon arrival to post-op.
--- NOTE | 2024-03-03 11:19 | EXP.ANES.II ---
[facility] Anesthesia Record Part II Anesthesia Record Part II Discharge Time: 08:45 Destination: Surgical Day Care (OP Surgery) PACU nurse assessment reviewed?: Yes Patient Condition:: Good Anesthesia Complications:: None Swallowing reflex intact?: Yes Airway Patency: Patent Cyanosis?: No Blood Pressure: 136/69 SaO2: 100 Respiratory Rate: 18 Pulse Rate: 65 Temperature: 97.2 F Mental Status: Alert & Oriented Pain level:: 0 Nausea and/or vomitting:: None Intake, IV Amount: 0 Hydration: Adequate
== END 2024-03-03 09:20 | disposition home or self-care (01) ==
PROVIDERS: PCP Nurse Practitioner Family; Visit Provider Obstetrics & Gynecology
PROC: (CPT 58558; principal; 2024-03-03 07:30)
DX: N89.8 Other specified noninflammatory disorders of vagina (principal); R93.89 Abnormal findings on diagnostic imaging of other specified body structures; N88.2 Stricture and stenosis of cervix uteri
CPT/HCPCS: 58558; 93005; J1100; J2250; J2405; J2704; J3010; J7120

== ENCOUNTER 2024-03-07 06:00 | Day surgery (SDC) | payer BC, SELFPAY ==
[2024-03-06 09:12] VITALS: BMI 41.1
[2024-03-07] VITALS (9 sets, daily range): BP systolic 133–160; BP diastolic 58–98; PULSE 52–59; RESP 12–18; TEMP 36.2–36.8; O2SAT 92–100
[2024-03-07] MEDS: ACETAMINOPHEN 500MG TAB 1000 MG PO (06:20)
[2024-03-07] MEDS: LACTATED RINGERS 1000ML 1,000 ML 25 ML IV (06:21)
--- NOTE | 2024-03-07 07:12 | EXP.ANES.CKL ---
[facility] Disclaimer: The information contained in this section may have been updated after the patient was seen, as this information can be updated by other users. Medical History Thickened endometrium Vaginal discharge HSV (herpes simplex virus) infection Osteoarthritis of right knee Surgical History History of gastric bypass S/P skin biopsy Family History Family/Other Breast cancer Social History Smoking Status: Never smoker alcohol intake: never substance use type: denies use current occupational status: employed Travel in the last 8 weeks: None [facility] Anesthesia Checklist Patient Identification Patient Identification: Arm Band Structural Data Admitted From: Home Planned Operative Procedure/s: Hysteroscopy, D&C, Myosure Ablation Consent for Planned Operative Procedure(s) Verified: Yes Verified Documents: Surgical Consent and History and Physical NPO Status Verified Time NPO: 00:00 Additional verifications Anesthesia Reactions: No Hx Blood Transfusions: No Blood Transfusion Reaction: No Airway Assessment Mallampati Score:: Class II C-Spine Mobility Assessed: Yes TMJ Mobility Assessed: Yes Dentition: Good Dentition Neurological Assessment Level of Consciousness: Awake, Alert and Appropriate Anesthesia Plan Anesthesia Risk discussed: Yes Anesthesia Plan: Verified ASA Class: III Anesthesia Type: General
--- NOTE | 2024-03-07 08:29 | EXP.ANES.I ---
[facility] Anesthesia Record Part I Anesthesia Record I Intake, IV Amount: 1,000 Hydration: Adequate Estimated blood loss (mL): 0 Urine output (mL): 0 Blood Products used (#): none Blood Pressure: 160/81 SaO2: 92 Pulse Rate: 58 Airway Patency: Patent Respiratory Rate: 16 Temperature: 98.2 F Patient is:: Drowsy and Stable Stable to PACU at:: 08:30
[2024-03-07] MEDS: MORPHINE 2MG/ML SYRINGE 2 MG IV (08:42)
--- NOTE | 2024-03-07 08:46 | EXP.OP.NOTE ---
Date of procedure: 03/07/24 Pre-op Diagnosis:: 1. Vaginal discharge 2. Thickened endometrium 3. Cervical stenosis Post-op Diagnosis:: 1. Vaginal discharge 2. Thickened endometrium 3. Cervical stenosis Procedure performed:: Cervical dilation, endometrial biopsy with endometrial pipette Surgeon:: Sharon Franco DO Vp Director Of Finance(s):: N/a RETAIL CLIENT SOLUTIONS ANALYST:: Gerson Sol Anesthesia: GETA Estimated blood loss (mL): 0 Clinical Note:: Mrs Samaria Granados is a 63 yo P2010 who presents to [facility] for scheduled procedure. She reports vaginal discharge that is song in color, not malodorus. States it has been going on for > 1 month. With this discharge she does have to wear a panty liner. She admits to some pelvic cramping. Pelvic ultrasound 02/07/24 demonstrated midline, anteverted uterus small in size and normal in shape. The endometrium appears thickened on some views, 10.3 mm. 2. There is fluid within the cervix. 3. Difficult examination due to uterine position. 4. Both ovaries are seen and appear atrophic. 5. No fluid in the cul-de-sac. Operative findings:: 1. On bimanual exam, uterus small, anteverted. No adnexal masses palpated 2. Cervical stenosis at internal os Operative note:: Risks, benefits and alternatives were discussed with the patient. Risks include but are not limited to bleeding, infection, uterine perforation and VTE. Patient voiced understanding and agreed to proceed. She took Cytotec preoperatively. She was wheeled back to the operating room and placed under general anesthesia without difficulty. She was placed in dorsal lithotomy position and prepped and draped in the normal sterile fashion. A bimanual exam was performed. A weighted Auvard was placed in the vaginal vault. Single tooth tenaculum was placed on anterior lip of the cervix. Cervix was noted to be stenotic at internal os. Pediatric dilators used to try to dilate internal os with little success. Hysteroscope was inserted through the external os and into cervical canal. Internal os was visualized but still appeared very stenotic. Flexible endometrial curette was inserted through the cervix and into the uterus. Uterus sounded to 7. Unable to dilate internal os above endometrial pipette diameter. Endometrial biopsy was performed with endometrial pipette rotating in a 360 degree fashion. Scant amount of tissue obtained. Instruments were removed from the vagina. Tenaculum site was hemostatic. Patient was awaken from anesthesia without difficulty. She was transported to recovery room in stable condition. Patient will be discharged home when awake and ambulating. She was given postop instructions. Condition: stable Disposition: same day Specimens:: 1. Scant endometrial tissue Complications:: None
--- NOTE | 2024-03-07 08:57 | SUR.PHASEI ---
0852: Pain level reassessed: Patient states pain level on 0-10 pain scale is at a 5 but is feeling better. Patient stated she did not want any more pain medication given at this time.
--- NOTE | 2024-03-07 12:31 | EXP.ANES.II ---
[facility] Anesthesia Record Part II Anesthesia Record Part II Discharge Time: 09:00 Destination: Surgical Day Care (OP Surgery) PACU nurse assessment reviewed?: Yes Patient Condition:: Good Anesthesia Complications:: None Swallowing reflex intact?: Yes Airway Patency: Patent Cyanosis?: No Blood Pressure: 155/58 SaO2: 100 Respiratory Rate: 12 Pulse Rate: 58 Temperature: 98.2 F Mental Status: Alert & Oriented Pain level:: 0 Nausea and/or vomitting:: None Intake, IV Amount: 0 Hydration: Adequate
== END 2024-03-07 09:35 | disposition home or self-care (01) ==
PROVIDERS: PCP Nurse Practitioner Family; Visit Provider Obstetrics & Gynecology
PROC: (CPT 58120; principal; 2024-03-07 07:30)
DX: N88.2 Stricture and stenosis of cervix uteri (principal); N89.8 Other specified noninflammatory disorders of vagina; R93.89 Abnormal findings on diagnostic imaging of other specified body structures
CPT/HCPCS: 58120; J1100; J1885; J2250; J2270; J2405; J3010; J7120

== ENCOUNTER 2024-03-14 03:00 | Outpatient (CLI) | payer BC, SELFPAY ==
--- NOTE | 2024-03-14 14:47 | US_ITS ---
PROCEDURE: US TRANSVAGINAL CLINICAL INDICATION: f/u transvaginal ultrasound to look at endometrium COMPARISON: US US TRANSVAGINAL from 02/07/2024 FINDINGS: Transvaginal sonographic images of the pelvis were obtained. UTERUS: 6.0cm x 3.5cmx 2.4cm midline with a combined endometrial thickness of 5.2 mm-8.0 mm.. LEFT OVARY: Not visualized RIGHT OVARY: Not visualized Both ovaries are not seen. There is no fluid in the cul-de-sac. IMPRESSION: 1. Difficult exam due to uterine position. 2. The uterus is small, anteverted and midline. 3. The endometrium is difficult to examine due to the uterine position but appears to still be thickened. 4. The ovaries were not seen today. 5. No fluid in the cul-de-sac. Dictated by: Angel Moura MD 03/15/2024 10:16 Angel Moura MD in OV 03/15/2024 10:16
== END 2024-03-14 23:59 | disposition home or self-care (01) ==
LOC: RAD 14:47
PROVIDERS: PCP Nurse Practitioner Family; Visit Provider Obstetrics & Gynecology
DX: R93.89 Abnormal findings on diagnostic imaging of other specified body structures (principal)
CPT/HCPCS: 76830

== ENCOUNTER 2025-06-19 09:11 | Outpatient (CLI) | payer OTHER, SELFPAY ==
--- NOTE | 2025-06-19 09:13 | US_ITS ---
FINAL REPORT TECHNIQUE: Real-time grayscale and color ultrasound of the thyroid was performed. CLINICAL HISTORY: mass of st neck COMPARISON: None FINDINGS: The thyroid gland measures 37 x 12 x 16 mm on the right and 32 x 13 x 16 mm on the left. The isthmus measures 8 mm. The parenchyma is heterogeneous.. Nodules: Multiple subcentimeter nodules bilaterally. There is an ill-defined hypoechoic focus on the right measuring 1.2 cm, consistent with a TR 4 lesion. Multiple small TR 4 nodules are scattered bilaterally. IMPRESSION: TR 4 right thyroid nodule measuring 1.2 cm. Follow-up 1 year recommended per TI-RADS criteria. Reviewed, Interpreted and Dictated by Daniel Soria MD Transcribed by Melissa Robertson Authenticated and [facility]
--- NOTE | 2025-06-19 09:13 | US_ITS ---
FINAL REPORT CLINICAL HISTORY: MASS OF SOFT TISSUE OF NECK FINDINGS: Limited sonographic images were obtained of the soft tissues of the neck of the area of reported palpable abnormality. Small scattered lymph nodes are seen. No acute findings. IMPRESSION: No acute findings. Reviewed, Interpreted and Dictated by Daniel Soria MD Transcribed by Melissa Robertson Authenticated and [facility]
--- OUTSIDE RECORDS SUMMARY | 2025-06-19 09:21 | XMS_ITS | Clinical Summary ---
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 Name Role Phone Unavailable Primary Care Provider Unavailabl e Social History Tobacco Use Types Packs/Day Years Used Date Smoking Tobacco: Never Assessed Comments Unknown Sex and Gender Information Value Date Recorded Sex Assigned at Not on file Legal Sex Female 3:59 AM EDT Gender Identity Not on file Sexual Orientation Not on file Plan of Treatment Health Maintenance Due Date Last Done Comments Annual Wellness Exam 1965 Hepatitis C Screening 1980 DTaP/TDaP/Td (1 - Tdap) 1981 Cologuard 2007 Colon Cancer Screening 2007 Colonoscopy 2007 FIT 2007 Sigmoidoscopy 2007 Virtual Colonography 2007 Pneumococcal Vaccine 50+ (1 of 1 - PCV) 2012 Zoster (1 of 2) 2012 COVID-19 Vaccine ( - 2024-2 6 season) 2025 Influenza Vaccine (#1) 2025 Hepatitis B Vaccine Aged Out No longe r eligible based on patient's age to complete this topic Meningococcal B Vaccine Aged Out No l onger eligible based on patient's age to complete this topic
== END 2025-06-19 23:59 | disposition home or self-care (01) ==
LOC: RAD 09:11
PROVIDERS: PCP Nurse Practitioner Family; Visit Provider Nurse Practitioner Family
DX: E04.1 Nontoxic single thyroid nodule (principal); M79.89 Other specified soft tissue disorders
CPT/HCPCS: 76536